=== PATIENT | male | born 1980 | race Caucasian/White ===

== ENCOUNTER 2021-06-06 12:00 | Outpatient (REF) | payer BC, SELFPAY ==
--- NOTE | ~2021-06-06 | XR_ITS ---
EXAMINATION: XR CHEST CLINICAL INFORMATION: R05.9 - Cough, unspecified COMPARISON: None TECHNIQUE: 2 views of the chest were obtained. FINDINGS: There is suspicion for subtle groundglass opacity peripherally right upper lobe on the frontal view. The remainder of the lungs are clear. There is no lobar or segmental airspace consolidation, pleural reaction, or effusion. The heart is normal in size. The vascularity is normal. The hilar and mediastinal contours are normal. No visible acute bony abnormality. XR/XR chest 2V IMPRESSION: Suspect subtle groundglass opacities periphery right upper lobe. No lobar or segmental airspace consolidation or effusion.
== END 2021-06-06 12:01 | disposition home or self-care (01) ==
LOC: HO.HMGCX 12:00
PROVIDERS: PCP Nurse Practitioner Family; Visit Provider Physician Assistant Medical
DX: U07.1 COVID-19 (principal); R05.9 Cough, unspecified
CPT/HCPCS: 71046